=== PATIENT | male | born 1950 | race Caucasian/White ===

== ENCOUNTER 2017-02-17 12:31 | Day surgery (SDC) | payer OTHER ==
[~2017-02-17] VITALS: Ht 167.6 cm; Wt 80.8 kg
[2017-02-17 13:23] VITALS: Ht 167.6 cm; Wt 80.8 kg
[2017-02-17 13:31] VITALS: BP 130/77; PULSE 65; RESP 16
[2017-02-17] MEDS ORDERED: HCTZ PO (13:35)
[2017-02-17] MEDS ORDERED: LOSARTAN PO (13:35)
[2017-02-17] MEDS ORDERED: MIDAZOLAM 1 MG/ML 2 ML INJ ONE ×2 (13:51)
[2017-02-17] MEDS ORDERED: FENTAnyl 50 MCG/ML VIAL ONE (13:51)
[2017-02-17 14:05] VITALS: BP 120/65; PULSE 60; RESP 14
--- NOTE | 2017-02-21 08:42 | GILP ---
DATE OF PROCEDURE: 02/17/2017 PROCEDURE PERFORMED: Colonoscopy and biopsy. SURGEON: Gin Madrigal MD PREOPERATIVE DIAGNOSIS: Screening colonoscopy. POSTOPERATIVE DIAGNOSES: Colonoscopy all the way to the cecum. Small polyp from the cecum was removed using the biopsy forceps. Internal hemorrhoids. INDICATION: The patient is a 66-year-old male patient, who was scheduled for screening colonoscopy. The procedure and possible complications were well explained to the patient. The patient understood and consented to the procedure. DESCRIPTION OF PROCEDURE: Under the influence of fentanyl and Versed, the colonoscope was carefully introduced in the rectum, and under direct vision it was advanced all the way to the cecum. FINDINGS: The patient had a small cecal polyp and it was removed using the biopsy forceps. The patient was noted to have internal hemorrhoids. He tolerated the procedure very well and there was no complication from the procedure. At the end of the procedure he was awake with stable vital signs and he was discharged to the care of his family. IMPRESSION: Colonoscopy all the way to the cecum. Small cecal polyp was removed using the biopsy forceps. Internal hemorrhoids. PLAN: Screening colonoscopy in 10 years. Dictated By: MD VASILE Tran/rodrigue/matty /Document#: [id number]
== END 2017-02-17 15:04 | disposition home or self-care (01) ==
LOC: GIL 12:31
PROVIDERS: ATTEND Internal Medicine Gastroenterology
DX: Z12.11 Encounter for screening for malignant neoplasm of colon (principal); I10 Essential (primary) hypertension
CPT/HCPCS: 45378; 88305; J2250; J3010